=== PATIENT | male | born 1950 | race Two or more races ===

== ENCOUNTER 2024-11-30 20:32 | Emergency (ER) | payer MEDICARE, MEDICAID ==
[~2024-11-30] VITALS: Ht 172.7 cm; Wt 93.9 kg
[2024-11-30 21:18] VITALS: BP 115/73; RESP 12; O2SAT 99
[2024-11-30 21:28] VITALS: PULSE 85
--- NOTE | 2024-11-30 21:28 | ED.PDOC ---
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 Patient states he was being seen by his primary physician on a routine visit today when he mentioned that he has been having dizziness described as feeling like the room is moving, resulting in multiple falls. These episodes have been occurring over the past 2 weeks. Patient states during these episodes he develops blurred vision and feels generally weak, occasionally causing him to fall. He denies any new focal weakness, chest pain or shortness a breath during these episodes. He denies hitting his head or losing consciousness. He denies any dizziness currently at rest. Chief Complaint: Dizziness Time Seen by MD: 19:20 Primary Care Provider: CAPRICE Lauren Notes: Nurses Notes, Medications, Allergies Allergies: Coded Allergies: NO KNOWN ALLERGIES (Unverified , 11/30/24) Information Source: Patient Mode of Arrival: Ambulatory Severity: Moderate Timing: Weeks Duration: Intermittent Prehospital treatment: None Past Medical History PAST MEDICAL HISTORY: CVA (4x w/residual left-sided deficits), DM, High Lipids, HTN Past Medical History (Other): obesity Surgical History: PTCA Surgical History (Other): right knee, cataract surgery, multiple joint plates placement Family History Family History: Unknown Social History Smoker: Non-Smoker Alcohol: Denies ETOH Use Drugs: Denies Drug Use Lives In: Home EENTM: reports: blurred vision Cardiovascular: reports: dizzy spells All Other Systems: Reviewed and Negative (negative unless otherwise stated above or in HPI) Physical Exam General Appearance: No Apparent Distress HEENT: PERRL/EOMI, Other (Moist mucous membranes. No facial asymmetry.) Neck: Full Range of Motion, Non-Tender, Normal Inspection, Supple Respiratory: Lungs Clear, No Accessory Muscle Use, No Respiratory Distress, Normal Breath Sounds Cardiovascular: No Edema, No JVD, Regular Rate/Rhythm Breast Exam: Deferred Gastrointestinal: Non Tender, Soft Genitalia: Deferred Pelvic: Deferred Rectal: Deferred Extremities: Normal inspection, Normal range of motion, Non-tender, No pedal edema Neurologic: Alert (Oriented x4), Normal Affect, Normal Mood, Other (Moves all extremities and ambulatory using his cane) Cerebellar Function: NOT DONE Reflexes: NOT DONE Skin: Dry, Normal Color, Warm Lymphatic: NOT DONE Was a procedure done? Was a procedure done?: No EKG EKG : Comments Sinus rhythm, rate 85, MT prolonged at 209, normal QRS and QTC intervals, left axis deviation, old inferior infarct, nonspecific T changes. Differential Dx Considerations may include: CVA, TIA, arrhythmia, positional vertigo, intracranial mass lesion, infection such as UTI, electrolyte imbalance, hypovolemia, among others X-Ray, Labs, Meds, VS Vital Signs Date Time Temp Pulse Resp B/P (MAP) Pulse Ox O2 Delivery O2 Flow Rate FiO2 11/30/24 21:28 85 11/30/24 21:18 97.9 99 12 115/73 (87) 99 Lab Test 11/30/24 23:36 11/30/24 22:41 Range/Units Troponin I High Sensitivity 4 4 </=54 ng/L White Blood Count 11.5 H 4.4-10.8 10^3/uL Red Blood Count 4.84 4.5-5.90 10^6/uL Hemoglobin 14.3 13.5-17.5 g/dL Hematocrit 44.0 41.0-53.0 % Mean Corpuscular Volume 91.0 80.0-100.0 fL Mean Corpuscular Hemoglobin 29.6 28.0-32.0 pg Mean Corpuscular Hemoglobin Concent 32.5 32.0-36.0 g/dL Red Cell Distribution Width 15.7 H 11.8-14.3 % Platelet Count 195 140-450 10^3/uL Mean Platelet Volume 8.5 6.9-10.8 fL Neutrophils (%) (Auto) 56.2 37.0-80.0 % Lymphocytes (%) (Auto) 27.3 10.0-50.0 % Monocytes (%) (Auto) 8.5 0.0-12.0 % Eosinophils (%) (Auto) 7.1 H 0.0-7.0 % Basophils (%) (Auto) 0.9 0.0-2.0 % Neutrophils # (Auto) 6.5 1.6-8.6 10 ^3/uL Lymphocytes # (Auto) 3.2 0.4-5.4 10 ^3/uL Monocytes # (Auto) 1.0 0-1.3 10 ^3/uL Eosinophils # (Auto) 0.8 0-0.8 10 ^3/uL Basophils # (Auto) 0.1 0-0.2 10 ^3/uL Nucleated Red Blood Cells 0.1 % Sodium Level 138 136-145 mmol/L Potassium Level 3.7 3.5-5.1 mmol/L Chloride Level 100 98-107 mmol/L Carbon Dioxide Level 30 20-31 mmol/L Anion Gap 8 5-15 Blood Urea Nitrogen 24 H 9-23 mg/dL Creatinine 1.54 H 0.700-1.30 mg/dL Glomerular Filtration Rate Calc 48 >90 mL/min BUN/Creatinine Ratio 15.6 10.0-20.0 Serum Glucose 183 H 74-106 mg/dL Calcium Level 10.6 H 8.7-10.4 mg/dL B-Type Natriuretic Peptide 10.22 0-100 pg/mL PROCEDURE(s): HWOCT - HEAD WITHOUT CONTRAST REASON: dizziness, falls ORDER NUMBER(s): [id number], ACCESSION NUMBER(s): [id number] EXAM: CT HEAD WITHOUT CONTRAST INDICATION: dizziness, falls TECHNIQUE: CT of the head without intravenous contrast. Radiation Dose Information: CT Dose: CTDI volume is 53.2 mGy. Dose-length product is 959.36 mGy*cm The dose indicators for CT are the volume Computed Tomography (CT) Dose Index (CTDIvol) and the Dose Length Product (DLP), and are measured in units of mGy and mGy-cm, respectively. These indicators are not patient dose, but values generated from the CT scanner acquisition factors. The report includes radiation exposure data for exposures received during this examination. COMPARISON: None FINDINGS: There is no evidence of acute intracranial hemorrhage, extra-axial collection, mass effect, midline shift, herniation or hydrocephalus. The ventricles, sulci and cisterns are age appropriate. The sr-white differentiation is intact. Patchy periventricular and subcortical white matter hypoattenuation is nonspecific but may be related to small vessel ischemic disease. Mucosal thickening of the left maxillary sinus and mastoid air cells are clear. The surrounding soft tissues and osseous structures are unremarkable. IMPRESSION: 1. No acute intracranial hemorrhage 2. No CT findings of territorial ischemia. EDURE(s): CXRP - CHEST PORTABLE REASON: dizzy, falls ORDER NUMBER(s): [id number], ACCESSION NUMBER(s): [id number] CHEST RADIOGRAPH Indication: dizzy, falls Technique: Single frontal view of the chest was obtained Comparison: CHEST PORTABLE on DOS: 04/29/22, CXRP on DOS: 04/29/22 FINDINGS: Lines and Tubes: None Lungs: Clear Pleura: No effusion. No pneumothorax. Cardiomediastinal contours: Unremarkable Bones: Unremarkable IMPRESSION: Clear lungs. 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 Vitals unremarkable Exam unremarkable Rhythm strip independently interpreted by me: Sinus rhythm, rate 85, no ectopy. Head CT IMPRESSION: 1. No acute intracranial hemorrhage 2. No CT findings of territorial ischemia. Chest x-ray IMPRESSION: Clear lungs. CBC remarkable for WBC 11.5, metabolic panel remarkable for BUN 24, creatinine 1.54, BNP and troponins negative, UA pending Patient treated with the following in the ED: Meclizine 50 mg p.o. On re-evaluation patient is resting comfortably with stable vitals. Plan is to admit the patient for brain MRI, Neurology and Cardiology evaluation. Time of 1ST Reevaluation: 19:50 Reevaluation 1ST: Unchanged Patient Education/Counseling: Diagnosis, Treatment Family Education/Counseling: No Family Present Departure 1 Departure Time of Disposition: 00:36 Impression: Primary Impression: Dizziness Additional Impression: Frequent falls Disposition: 09 ADMITTED INPATIENT Admit to: Tele Condition: Guarded Critical Care Note Critical Care Time?: No Stability Stability form required: No Heart Score Heart Score: Heart Score Response (Comments) Value History N/A 0 EKG N/A 0 Age N/A 0 Risk Factors N/A 0 Troponin N/A 0 Total 0 I personally scribed for SHANNA BERGER MD ([email or web address]) on 11/30/24 at 21:28. Electronically submitted by Roberto Duarte ([email or web address]). I personally scribed for SHANNA BERGER MD ([email or web address]) on 11/30/24 at 21:31. Electronically submitted by Roberto Duarte ([email or web address]). I personally scribed for SHANNA BERGER MD ([email or web address]) on 11/30/24 at 21:50. Electronically submitted by Roberto Duarte ([email or web address]). SHANNA BERGER MD Nov 30, 2024 21:28
[2024-11-30] MEDS ORDERED: MECLIZINE HCL 25 MG TAB PO ONE (22:30)
--- NOTE | 2024-11-30 22:40 | DVH ---
CHEST RADIOGRAPH Indication: dizzy, falls Technique: Single frontal view of the chest was obtained Comparison: CHEST PORTABLE on DOS: 04/29/22, CXRP on DOS: 04/29/22 FINDINGS: Lines and Tubes: None Lungs: Clear Pleura: No effusion. No pneumothorax. Cardiomediastinal contours: Unremarkable Bones: Unremarkable IMPRESSION: Clear lungs.
--- NOTE | 2024-11-30 22:43 | DVH ---
EXAM: CT HEAD WITHOUT CONTRAST INDICATION: dizziness, falls TECHNIQUE: CT of the head without intravenous contrast. Radiation Dose Information: CT Dose: CTDI volume is 53.2 mGy. Dose-length product is 959.36 mGy*cm The dose indicators for CT are the volume Computed Tomography (CT) Dose Index (CTDIvol) and the Dose Length Product (DLP), and are measured in units of mGy and mGy-cm, respectively. These indicators are not patient dose, but values generated from the CT scanner acquisition factors. The report includes radiation exposure data for exposures received during this examination. COMPARISON: None FINDINGS: There is no evidence of acute intracranial hemorrhage, extra-axial collection, mass effect, midline s hift, herniation or hydrocephalus. The ventricles, sulci and cisterns are age appropriate. The sr-white differentiation is intact. Patchy periventricular and subcortical white matter hypoattenuation is nonspecific but may be related to small vessel ischemic disease. Mucosal thickening of the left maxillary sinus and mastoid air cells are clear. The surrounding soft tissues and osseous structures are unremarkable. IMPRESSION: 1. No acute intracranial hemorrhage 2. No CT findings of territorial ischemia.
[2024-11-30 22:52] LABS: Basophils # (auto) 0.1 10 ^3/uL (0-0.2); Basophils % (auto) 0.9 % (0.0-2.0); Eosinophils # (auto) 0.8 10 ^3/uL (0-0.8); Eosinophils % (auto) 7.1 % (0.0-7.0); Hemoglobin 14.3 g/dL (13.5-17.5); Lymphocytes # (auto) 3.2 10 ^3/uL (0.4-5.4); Lymphocytes % (auto) 27.3 % (10.0-50.0); Mean Corpuscular Hemoglobin 29.6 pg (28.0-32.0); Mean Corpuscular Hgb Conc. 32.5 g/dL (32.0-36.0); Monocytes % (auto) 8.5 % (0.0-12.0); Neutrophils # (auto) 6.5 10 ^3/uL (1.6-8.6); Neutrophils % (auto) 56.2 % (37.0-80.0); Nucleated Red Blood Cells % 0.1 %; Platelet Count (auto) 195 10^3/uL (140-450); Red Blood Cells 4.84 10^6/uL (4.5-5.90); Red Cell Distribution Width 15.7 % (11.8-14.3); White Blood Cell 11.5 10^3/uL (4.4-10.8)
[2024-11-30 23:06] LABS: Chloride 100 mmol/L (98-107); Potassium 3.7 mmol/L (3.5-5.1); Sodium 138 mmol/L (136-145)
[2024-11-30 23:07] LABS: Anion Gap 8 (5-15); Carbon Dioxide 30 mmol/L (20-31)
[2024-11-30 23:12] LABS: BUN/Creatinine Ratio 15.6 (10.0-20.0)
[2024-11-30 23:13] LABS: Blood Urea Nitrogen 24 mg/dL (9-23); Calcium 10.6 mg/dL (8.7-10.4); Glucose 183 mg/dL (74-106)
--- NOTE | 2024-11-30 23:54 | ECG ---
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
== END 2024-12-01 01:29 | disposition left against medical advice (07) ==
LOC: ER 20:32
DX: R42 Dizziness and giddiness (principal); E11.9 Type 2 diabetes mellitus without complications; E78.5 Hyperlipidemia, unspecified; I10 Essential (primary) hypertension; Z98.890 Other specified postprocedural states
CPT/HCPCS: 36415; 70450; 71045; 80048; 83880; 84484; 85025; 93005